=== PATIENT | male | born 1975 | race African-American/Black ===

== ENCOUNTER 2022-01-12 13:07 | Emergency (ER) | payer MEDICAID ==
[~2022-01-12] VITALS: Ht 170.2 cm; Wt 78.0 kg
[2022-01-12 13:27] VITALS: BP 104/69
[2022-01-12 18:20] LABS: CLARITY URINE CLEAR (CLEAR); COLOR URINE YELLOW (YELLOW); KETONES URINE NEGATIVE (NEGATIVE); LEUKOCYTE ESTERASE URINE NEGATIVE (NEGATIVE); NITRITE URINE NEGATIVE (NEGATIVE); OCCULT BLOOD URINE TRACE (NEGATIVE); PH URINE 6.5 (4.5-8.0); PROTEIN URINE NEGATIVE (NEGATIVE); SPECIFIC GRAVITY URINE 1.019 (1.005-1.030); UROBILINOGEN URINE 0.2 E.U./dL (0.2-1.0)
== END 2022-01-12 18:27 | disposition home or self-care (01) ==
LOC: ER 13:07
DX: K40.90 Unilateral inguinal hernia, without obstruction or gangrene, not specified as recurrent (principal)
CPT/HCPCS: 76870; 81003; 93976; 99284

== ENCOUNTER 2022-01-19 12:59 | Inpatient (IN) | payer SELFPAY ==
[~2022-01-19] VITALS: Ht 170.2 cm; Wt 74.8 kg
[2022-01-19] MEDS ORDERED: APIXABAN 5 MG TABLET PO STA (18:59)
[2022-01-19 21:27] LABS: INR 1.1; PROTHROMBIN TIME 11.5 sec (9.6-11.0)
[2022-01-19 21:28] LABS: BASOPHILS % 0.3 % (0.0-2.0); CHLORIDE 107 mEq/L (98-107); EOSINOPHILS % 1.6 % (0.0-5.0); HEMATOCRIT. 45.7 % (42.0-52.0); HEMOGLOBIN. 15.4 g/dL (14.0-18.0); LYMPHOCYTES % 17.9 % (20.0-50.0); MEAN CORPUSCULAR HEMOGLOBIN 30.7 pg (28.0-32.0); MEAN CORPUSCULAR VOLUME 91.2 fL (80.0-94.0); MEAN PLATELET VOLUME 7.9 fl (7.4-10.4); MONOCYTES % 9.5 % (2.0-8.0); NEUTROPHILS % 70.7 % (40.0-76.0); PLATELET 165 x1000/uL (130-400); RED BLOOD CELL COUNT 5.01 mill/uL (4.7-6.1); RED CELL DISTRIBUTION WIDTH 13.9 % (11.6-14.6)
[2022-01-19] MEDS ORDERED: MORPHINE SULFATE 4 MG/ML CPJ (NOT FOR IM USE) IV ONE (22:45)
[2022-01-20] MEDS ORDERED: GUAIFENESIN 200MG/10ML SUGAR FREE UDC PO PRN
[2022-01-20] MEDS ORDERED: DOCUSATE SODIUM 100MG CAPSULE PO PRN
[2022-01-20] MEDS ORDERED: ONDANSETRON HCL 4MG/2ML INJ IV PRN
[2022-01-20] MEDS ORDERED: CLONIDINE 0.1MG TABLET PO PRN
[2022-01-20] MEDS ORDERED: HYDROCODONE/ACETAMINOPHEN 5/325MG TABLET PO PRN
[2022-01-20] MEDS ORDERED: ACETAMINOPHEN 325MG TABLET PO PRN
[2022-01-20] MEDS ORDERED: MAGNESIUM/ALUMINUM HYDROXIDE/SIMETHICONE 30ML UDC PO PRN
[2022-01-20] MEDS ORDERED: IPRATROPIUM/ALBUTEROL 0.5-3(2.5)MG/3ML NEB HHN PRN
[2022-01-20 04:50] VITALS: BP 109/68
[2022-01-20] MEDS ORDERED: APIX2.5T PO (05:32)
[2022-01-20] MEDS: HYDROMORPHONE HCL/PF 2MG/ML CPJ IV PRN ×2 (07:06→12:12)
[2022-01-20 08:00] VITALS: BP 119/71
[2022-01-20] MEDS: APIXABAN 5 MG TABLET PO SCH ×2 (09:43→16:04)
[2022-01-20 10:39] LABS: BASOPHILS % 0.3 % (0.0-2.0); EOSINOPHILS % 1.8 % (0.0-5.0); HEMATOCRIT. 42.7 % (42.0-52.0); HEMOGLOBIN. 14.5 g/dL (14.0-18.0); LYMPHOCYTES % 23.1 % (20.0-50.0); MEAN CORPUSCULAR HEMOGLOBIN 31.1 pg (28.0-32.0); MEAN CORPUSCULAR VOLUME 91.3 fL (80.0-94.0); MEAN PLATELET VOLUME 7.7 fl (7.4-10.4); NEUTROPHILS % 65.8 % (40.0-76.0); PLATELET 149 x1000/uL (130-400); RED BLOOD CELL COUNT 4.67 mill/uL (4.7-6.1); RED CELL DISTRIBUTION WIDTH 13.7 % (11.6-14.6)
[2022-01-20 10:48] LABS: CHLORIDE 105 mEq/L (98-107)
[2022-01-20 10:49] LABS: D-DIMER > 35.20 mg/L FEU (<0.50); PARTIAL THROMBOPLASTIN TIME 30.1 sec (23.4-31.0)
[2022-01-20 12:00] VITALS: BP 114/64
[2022-01-20 16:00] VITALS: BP 106/66
[2022-01-20] MEDS ORDERED: NALOXONE HCL 0.4MG/ML VIAL IV PRN (16:15)
[2022-01-20 20:00] VITALS: BP 130/83
[2022-01-21] VITALS: BP 122/77
[2022-01-21] MEDS ORDERED: METOCLOPRAMIDE HCL 10MG TABLET PO PRN
[2022-01-21] MEDS ORDERED: METOCLOPRAMIDE HCL 10MG/2ML VIAL IV PRN (00:15)
[2022-01-21 04:00] VITALS: BP 106/69
[2022-01-21 07:43] LABS: BASOPHILS % 0.2 % (0.0-2.0); EOSINOPHILS % 0.6 % (0.0-5.0); HEMATOCRIT. 43.2 % (42.0-52.0); HEMOGLOBIN. 14.8 g/dL (14.0-18.0); LYMPHOCYTES % 11.6 % (20.0-50.0); MEAN CORPUSCULAR HEMOGLOBIN 30.9 pg (28.0-32.0); MEAN CORPUSCULAR VOLUME 90.3 fL (80.0-94.0); MEAN PLATELET VOLUME 8.1 fl (7.4-10.4); MONOCYTES % 7.2 % (2.0-8.0); NEUTROPHILS % 80.4 % (40.0-76.0); PLATELET 158 x1000/uL (130-400); RED BLOOD CELL COUNT 4.78 mill/uL (4.7-6.1); RED CELL DISTRIBUTION WIDTH 13.5 % (11.6-14.6)
[2022-01-21 07:44] LABS: CHLORIDE 101 mEq/L (98-107)
[2022-01-21 08:00] VITALS: BP 99/56
[2022-01-21] MEDS: APIXABAN 5 MG TABLET PO SCH ×2 (08:12→16:11)
[2022-01-21 12:00] VITALS: BP 110/77
[2022-01-21 15:54] VITALS: BP 115/70
[2022-01-21 16:00] VITALS: BP 115/70
[2022-01-21] MEDS: HYDROMORPHONE HCL/PF 2MG/ML CPJ IV PRN (17:31)
[2022-01-23 04:08] LABS: ANTI-THROMBIN ACTIVITY 96 % (75-135); PROTEIN C FUNCTIONAL 126 % (73-180)
[2022-01-27] MEDS ORDERED: APIXABAN 5 MG TABLET PO SCH (09:00)
== END 2022-01-21 20:00 | disposition home or self-care (01) | DRG 197 ==
LOC: ER 13:37 → MICUSO 23:13 → 6WST 01-20 05:31
PROVIDERS: ADMIT Internal Medicine Nephrology; ATTEND Internal Medicine Nephrology
DX: I82.412 Acute embolism and thrombosis of left femoral vein (principal); D68.51 Activated protein C resistance; Z20.822 Contact with and (suspected) exposure to COVID-19; Z79.01 Long term (current) use of anticoagulants; Z86.718 Personal history of other venous thrombosis and embolism; Z80.8 Family history of malignant neoplasm of other organs or systems; Z80.41 Family history of malignant neoplasm of ovary
CPT/HCPCS: 36415; 71045; 80053; 81403; 81407; 81479; 85025; 85300; 85303; 85306; 85379; 87426; 93971; 99291; J1170; J2270; J2405; J2765; J8597